=== PATIENT | male | born 1985 ===

== ENCOUNTER 2023-08-29 15:37 | Emergency (ER) | payer MEDICARE, OTHER ==
[~2023-08-29] VITALS: Ht 182.9 cm; Wt 111.1 kg
[2023-08-29 16:10] VITALS: BP 138/89
== END 2023-08-29 17:03 | disposition left against medical advice (07) ==
LOC: ER 15:37
DX: M54.50 Low back pain, unspecified (principal); Z53.21 Procedure and treatment not carried out due to patient leaving prior to being seen by health care provider
CPT/HCPCS: 99281